=== PATIENT | female | born 1990 | race Caucasian/White ===

== ENCOUNTER 2020-02-20 12:43 | Day surgery (SDC) | payer OTHER ==
[2020-02-20 13:13] VITALS: BMI 32.5
[2020-02-20] MEDS ORDERED: hydrALAZINE 20 MG/ML VIAL SLOW IVP PRN (13:58)
--- NOTE | 2020-02-20 14:29 | PRG ---
DATE OF SERVICE: 02/20/2020 TIME OF SERVICE: 1400 hours. PRESENTING COMPLAINT: Decreased movement at 37 weeks and 6 days. HISTORY OF PRESENT ILLNESS: Ms. Guzman is a 4, para 2, with EDC of 03/06. She was seen by Dr. Pat at [facility] this morning for decreased movement. She reported some movement, just stated it seems subjectively somewhat decreased. On exam in the office, she had a modified biophysical profile with NST, which revealed 6/10 for movement and reactive NST. She was sent over for prolonged monitoring. She denies rupture of membranes. She has an active fetus. 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 Antibody negative. Pap negative. Rubella immune. VDRL nonreactive. Hepatitis B, GC, chlamydia negative. Group B strep negative. EDC of 03/06. Miscarriage x1. Spontaneous vaginal delivery x2. PAST MEDICAL HISTORY: Denies. PAST SURGICAL HISTORY: Denies. ALLERGIES: SULFA. MEDICATIONS: vitamins. SOCIAL HISTORY: Denies tobacco, alcohol, or IV drug use. FAMILY HISTORY: Noncontributory. REVIEW OF SYSTEMS: Noncontributory. PHYSICAL EXAMINATION: GENERAL: White female, resting comfortably. VITAL SIGNS: Blood pressure 129/77, pulse 78, respirations 18, temperature 99.1. HEENT: Within normal limits. LUNGS: Clear to auscultation bilaterally. HEART: Regular rate and rhythm. ABDOMEN: Soft and nontender. Fundal height 38. FHTs 130s to 140s. VAGINAL: Deferred. Exam in the office today revealed a re-vertex, 150, -2. Prolonged monitoring is carried out for greater than an hour, which revealed a reactive heart rate tracing and a reactive nonstress test. Baseline was 130s to 140s, positive accelerations were noted, no decelerations were noted, and no significant contractions were noted. IMPRESSION: Abnormal modified BPP, now resolved, at 37 weeks gestation with reassuring heart rate tracing. PLAN: Reassurance. Discharged home. Continued kick counts. ER precautions. Return if decreased movement resumes and keep scheduled followup with Dr. Pat. Job ID: [id number]
[2020-02-20] MEDS ORDERED: Fentanyl 4 mcg/Bup 0.1% Cadd 100 ML ONE (15:57)
== END 2020-02-20 14:25 ==
LOC: L&D/OP 12:43
PROVIDERS: ATTEND Family Medicine
DX: O36.8130 Decreased fetal movements, third trimester, not applicable or unspecified (principal); O09.293 Supervision of pregnancy with other poor reproductive or obstetric history, third trimester; Z3A.37 37 weeks gestation of pregnancy; Z88.2 Allergy status to sulfonamides

== ENCOUNTER → 2020-02-28 | Day surgery (SDC) | payer OTHER ==
[~2020-02-28] MED LIST: hydrALAZINE 20 MG/ML VIAL SLOW IVP PRN
[2020-02-28 21:01] VITALS: BMI 32.8
--- NOTE | 2020-02-28 22:02 | PDOC.LDHP ---
Labor and Delivery H&P Chief complaint: contractions HPI: 29 y/o @ 39.0 weeks presents to L&D for ctx. ctx started @ 5 PM, became consistent (6-8 minutes apart) and painful/unable to talk through. Denies LOF, vag bleeding, vag d/c. reports good movements Denies YOUNG, visual changes, abd pain, swelling. PCP: Dr. Pat Current gestational age (weeks): 39 Due date: 03/06/20 Grav: 4 Para: 2 OB History Details: Preg #1: 39.3 weeks; 2014 Preg #2: spon AB @ 7 weeks; 2017 Preg #3: @ 38.3; 2018 Current complications: none Abnormal US findings: No Past Medical History: no known medical problems Current medications: pre- vitamins Previous surgical history: none Allergies/Adverse Reactions: Allergies Allergy/AdvReac Type Severity Reaction Status Date / Time Sulfa (Sulfonamide Allergy Intermediate Hives Verified 02/20/20 13:07 Antibiotics) Social history: none - Physical Exam Vital signs reviewed and normal: yes General: NAD Heart: RRR Lungs: CTAB Abdomen: gravid Extremeties: no edema FHT: category 1 (140 baseline, mod cesar acels present no decels), variability present [place] contractions every: 5-6 min - Vaginal Exam cm dilated: 1 Effacement: 50% Station: -3 - OB Labs Blood type: B RH: positive Antibody Screen: negative HIV: negative RPR: negative HEPSAg: negative GBS: negative Rubella: immune - Assessment 29 y/o @ 39.0 weeks presents to L&D for ctx. 1. SIUP @ 39.0 weeks - FHT and TOCO monitoring. 2. CTX's - SVE: 50/-3 @ 20:50 on 02/28/20 - will monitor on OBs for 2 hours and recheck SVE. Dispo: 2 hour obs. Monitor SVE for change. Care plan discussed with Dr. Hunt, attending physician, who is in agreement with above stated plan.
--- NOTE | 2020-02-28 22:29 | PDOC.BPN ---
- Brief Progress Note Encounter Date: 02/28/20 Encounter Time: 22:30 Patient seen at bedside. 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 Has IOL scheduled. CX was 1cm at first check and recheck will be in about 30-40 minutes. No LOF Vitals wnl NST reactive
--- NOTE | 2020-02-28 23:11 | PDOC.BPN ---
- Brief Progress Note Encounter Date: 02/28/20 Encounter Time: 22:50 re-eval SVE: %/-3 unchanged from previous exam ctx Q5 min on toco Cat 1 FHT strip return precautions explained in detail dispo: d/c home Pt agreeable to plan dispo plan discussed with Dr. Hunt, attending physician, who is in agreement wi th above stated plan.
== END | disposition home or self-care (01) ==
LOC: L&D/OP 20:26
PROVIDERS: ATTEND Family Medicine
DX: O47.1 False labor at or after 37 completed weeks of gestation (principal); O09.293 Supervision of pregnancy with other poor reproductive or obstetric history, third trimester; Z3A.39 39 weeks gestation of pregnancy; Z88.2 Allergy status to sulfonamides

== ENCOUNTER 2020-02-29 05:32 | Inpatient (IN) | payer OTHER ==
--- NOTE | 2020-02-29 06:01 | PDOC.LDHP ---
Labor and Delivery H&P Chief complaint: contractions HPI: 29 y/o @ 39.1 weeks presents to L&D for ctx that became more frequent and painful after leaving L&D last night. reports good movements denies lof, vag d/c, vag bleeding + ctx Q3 min, strong and painful, more so than last nigh t see 02/27 note. She was discharged home after no cervicla change in [address] Pat. Current gestational age (weeks): 39 (39.1) Due date: 03/06/20 Grav: 4 Para: 2 OB History Details: Preg #1: 39.3 weeks; 2014 Preg #2: spon AB @ 7 weeks; 2017 Preg #3: @ 38.3; 2018 Current complications: none Abnormal US findings: No Past Medical History: no known medical problems Current medications: pre-thierry vitamins Previous surgical history: none Allergies/Adverse Reactions: Allergies Allergy/AdvReac Type Severity Reaction Status Date / Time Sulfa (Sulfonamide Allergy Intermediate Hives Verified 02/20/20 13:07 Antibiotics) Social history: none - Physical Exam Vital signs reviewed and normal: yes General: breathing through contractions Heart: RRR Lungs: CTAB Abdomen: gravid Extremeties: no edema FHT: category 1 [place] contractions every: Q3min - Vaginal Exam cm dilated: 6 Effacement: 100% Station: 0 - OB Labs Blood type: B RH: positive Antibody Screen: negative HIV: negative RPR: negative HEPSAg: negative GBS: negative Rubella: immune - Assessment L&D Assessment: term patient in labor - Plan Plan: admit to L&D -: 29 y/o @ 39.1 weeks presents to L&D for ctx that became more frequent and painful after leaving L&D last night. 1. SIUP @ 39.1 weeks - continuous FHT and TOCO monitoring. - desires epidural for pain control - anesthesia consulted - Dr. Pat PCP, admitting to on-call laborist this weekend. - GBS negative status 2. CTX's in active labor - SVE: /-3 @ 20:50 on 02/28/20 - SVE: /0 @ 05:50 on 02/29/20 - Q2 hours SVE. Dispo: admit to L&D for active labor Care plan discussed with Dr. Hunt, attending physician, who is in agreement with above stated plan.
[2020-02-29] MEDS ORDERED: NS / Oxytocin 40 units/1000ml 1,000 ML IV PRN (06:02)
[2020-02-29] MEDS ORDERED: Ondansetron PF 4 MG/2 ML Vial IVP PRN ×3 (06:02→11:08)
[2020-02-29] MEDS ORDERED: Lidocaine 1% (PF) 30 ML VIAL SC PRN (06:02)
[2020-02-29] MEDS ORDERED: Misoprostol 200 MCG TAB PR PRN (06:02)
[2020-02-29] MEDS ORDERED: hydrALAZINE 20 MG/ML VIAL SLOW IVP PRN ×2 (06:02→11:08)
[2020-02-29] MEDS ORDERED: Carboprost 250 MCG/ML AMP IM PRN (06:02)
[2020-02-29] MEDS ORDERED: Promethazine HCl 25 MG/ML VIAL IM PRN ×2 (06:02→07:33)
[2020-02-29] MEDS ORDERED: Methylergonovine 0.2 MG/ML VIAL IM PRN (06:02)
[2020-02-29] MEDS ORDERED: Butorphanol Tartrate 1 MG/ML VIAL SLOW IVP PRN (06:02)
[2020-02-29] MEDS ORDERED: NS w/ Oxytocin 10 units 500 ML IV SCH ×2 (06:15)
[2020-02-29 06:16] VITALS: BMI 32.8
--- NOTE | 2020-02-29 06:16 | PDOC.BPN ---
- Brief Progress Note cat 1 FHT strip baseline 140, mod cesar, one variable observed. none recurrent. toco: ctx Q2 min
[2020-02-29] MEDS ORDERED: Fentanyl 4 mcg/Bup 0.1% Cadd 100 ML ONE (06:23)
--- NOTE | 2020-02-29 06:26 | PDOC.BPN ---
- Brief Progress Note Encounter Date: 02/29/20 Encounter Time: 06:20 At bedside, plan of care again reviewed with her. Strip reviewed. 128/79
[2020-02-29 06:50] LABS: Hemoglobin 13.5 g/dL (12.0-16.0); Mean Corpuscular HGB CONC 34.7 g/dL (32.0-36.0); Mean Corpuscular Hemoglobin 30.6 pg (27.0-31.0); Mean Corpuscular Volume 88.3 fL (78.0-98.0); Mean Platelet Volume 11.1 fL (7.4-10.4); Platelet Count 147 thou/uL (130-400); RBC Distribution Width 12.6 % (11.5-14.5); Red Blood Cell (RBC) Count 4.39 mill/uL (4.20-5.40); White Blood Cell (WBC) Count 9.5 thou/uL (4.8-10.8)
[2020-02-29] MEDS: Lactated Ringer's 1,000 ML IV SCH ×2 (06:54→07:56)
[2020-02-29 07:32] LABS: HBSAg Index 0.16 S/CO (0-0.99); Hep B Surf Ag Non-Reactive S/CO (NonReactive); Syphilis Antibody Nonreactive (Nonreactive); Syphilis Antibody Index 0.03 S/CO (<1.00 Non-Reactive)
[2020-02-29] MEDS ORDERED: diphenhydrAMINE 50 MG/ML VIAL IVP PRN (07:33)
[2020-02-29] MEDS ORDERED: EPHEDRINE 25 MG/5 ML SYRINGE SLOW IVP PRN (07:33)
[2020-02-29] MEDS ORDERED: Naloxone HCl 0.4 mg/ml Vial IVP PRN ×2 (07:33)
[2020-02-29] MEDS ORDERED: Lactated Ringer's 500 ML IV PRN (07:33)
[2020-02-29] MEDS ORDERED: Ondansetron PF 4 MG/2 ML Vial ONE (07:34)
[2020-02-29] MEDS ORDERED: EPINEPHrine 1 MG/10 ML Abboject SYRINGE ONE (07:34)
[2020-02-29] MEDS ORDERED: ePHEDrine 50 MG/ML VIAL SLOW IVP PRN (07:42)
[2020-02-29] MEDS ORDERED: Communication Order-Pharmacy FS SCH (07:45)
[2020-02-29] MEDS ORDERED: Fentanyl 4 mcg/Bupivacaine 0.1% Cassette 100 ML EPIDURAL SCH (07:45)
[2020-02-29] MEDS ORDERED: Lidocaine 1% (PF) 30 ML VIAL ONE (08:25)
[2020-02-29] MEDS ORDERED: NS / Oxytocin 40 units/1000ml 1,000 ML ONE (08:25)
--- NOTE | 2020-02-29 10:03 | PDOC.OPDEL ---
OB Operative/Delivery Note - Additional Findings/Plan Compilations/Other Findings: Delivering Physician: Dr. Pk Morrison Attending: Dr. Bakari Gonzalez Procedure: Spontaneous Vaginal Delivery Anesthesia: epidural QBL: 50 ml Pre-op Diagnosis: 1. Term intrauterine in labor Post-op Diagnosis: 1. Term intrauterine , delivered 2. 2nd Degree Perineal Laceration - repaired Indications: A 29 y/o female presents in active labor with contractions. Delivery Note: This is 29 yo F @ 39.1 wks who delivered a viable M at 0933. Following an uneventful antepartum course, a vigorous (sex) was delivered over an intact perineum in the STEVENSON position. Anterior Shoulder and then remainder of the body delivered. Nuchal cord x2 easily reduced. The head was held down and mouth and nares were bulb suctioned. Cord clamped after delayed cord clamping and cut and cord blood collected. Placenta delivered intact with a 3 vessel cord noted. Fundal massage was performed and the fundus was firm. The cervix and vagina were inspected and 2nd degree perineal laceration was identified. This was closed in the usual fashion with good approximation and hemostasis. went to nursery in good condition for routine care. Apgars were 8/9 at 1 & 5 minutes, respectively. Patient to lerated delivery well and went to after routine recovery/care.
[2020-02-29] MEDS ORDERED: Milk Of Magnesia 30 ML UDCUP PO PRN (11:08)
[2020-02-29] MEDS ORDERED: Bisacodyl 10 MG SUPP PR PRN (11:08)
[2020-02-29] MEDS ORDERED: diphenhydrAMINE 25 MG CAP PO PRN (11:08)
[2020-02-29] MEDS ORDERED: Benzocaine-Menthol 82.5 ML CAN TOP PRN (11:08)
[2020-02-29] MEDS ORDERED: Lanolin Ointment 7 GM TUBE TOP PRN (11:08)
[2020-02-29] MEDS ORDERED: Misoprostol 200 MCG TAB VAG PRN (11:08)
[2020-02-29] MEDS ORDERED: NS / Oxytocin 40 units/1000ml 1,000 ML IV SCH (11:08)
[2020-02-29] MEDS ORDERED: Preparation H Ointment 28 GM TUBE PR PRN (11:08)
[2020-02-29] MEDS ORDERED: Adacel (T-DAP) 0.5 ML SYRINGE IM ONE (11:08)
[2020-02-29] MEDS ORDERED: Bupivacaine 0.25% HCL 30 ML VIAL ONE (13:40)
[2020-02-29] MEDS: Ibuprofen 800 MG TAB PO SCH ×2 (14:22→21:04)
[2020-02-29] MEDS: Ferrous Sulfate 325 MG TAB PO SCH (18:06)
[2020-02-29] MEDS: Acetaminophen 325 MG TAB PO PRN (19:28)
[2020-02-29] MEDS: Docusate Calcium (SURFAK) 240 MG CAP PO SCH (21:04)
[2020-03-01] MEDS: Ibuprofen 800 MG TAB PO SCH (05:16)
[2020-03-01] MEDS: Ferrous Sulfate 325 MG TAB PO SCH (07:50)
[2020-03-01] MEDS: Acetaminophen 325 MG TAB PO PRN (08:36)
[2020-03-01] MEDS: Docusate Calcium (SURFAK) 240 MG CAP PO SCH (08:37)
[2020-03-01] MEDS ORDERED: Prenatal Vitamin 1 TAB PO SCH (09:00)
[2020-03-01 09:14] VITALS: BP 121/77; TEMP 98.2
[2020-03-02 12:37] LABS: SARS-CoV-2 by NAA Not Detected (Not Detected)
== END 2020-03-01 11:35 | disposition home or self-care (01) | DRG 807 ==
LOC: L&D/OP 05:32 → L&D 06:02 → 3SW 12:39
PROVIDERS: ADMIT Student in an Organized Health Care Education/Training Program; ATTEND Student in an Organized Health Care Education/Training Program
PROC: 10E0XZZ Delivery of Products of Conception, External Approach (ICD-10-PCS; principal; 2020-02-29)
PROC: 0KQM0ZZ Repair Perineum Muscle, Open Approach (ICD-10-PCS; 2020-02-29)
DX: O69.81X0 Labor and delivery complicated by cord around neck, without compression, not applicable or unspecified (principal); Z37.0 Single live birth; Z20.828 Contact with and (suspected) exposure to other viral communicable diseases; O70.1 Second degree perineal laceration during delivery; Z88.2 Allergy status to sulfonamides; Z3A.39 39 weeks gestation of pregnancy
CPT/HCPCS: 36415; 85027; 86780; 86850; 86900; 86901; 87340; 87635; J0595; S0020; U0003